=== PATIENT | female | born 1955 | race Hispanic/Latino ===

== ENCOUNTER 2018-07-18 07:36 | Day surgery (SDC) | payer OTHER ==
[2018-07-18] MEDS ORDERED: Propofol 10 mg/ml Inj (20 ML) ONE ×2 (08:42→08:57)
[2018-07-18] MEDS ORDERED: Sodium Chloride 0.9% 1,000 ML IV SCH (09:30)
[2018-07-18 10:00] VITALS: O2SAT 98
[2018-07-18 10:44] VITALS: BP 129/85; PULSE 85; RESP 16; TEMP 98.1
== END 2018-07-18 10:56 | disposition home or self-care (01) ==
LOC: ENDO 07:36
PROVIDERS: ATTEND Specialist
DX: Z12.11 Encounter for screening for malignant neoplasm of colon (principal); K22.70 Barrett's esophagus without dysplasia; Z86.010 Personal history of colon polyps; D12.0 Benign neoplasm of cecum; K62.1 Rectal polyp; K64.8 Other hemorrhoids; K22.2 Esophageal obstruction; K44.9 Diaphragmatic hernia without obstruction or gangrene; K31.89 Other diseases of stomach and duodenum; K21.0 Gastro-esophageal reflux disease with esophagitis; K29.80 Duodenitis without bleeding; Z85.118 Personal history of other malignant neoplasm of bronchus and lung; Z90.2 Acquired absence of lung [part of]; Z88.1 Allergy status to other antibiotic agents; Z91.048 Other nonmedicinal substance allergy status
CPT/HCPCS: 43239; 45380; 45385; 88305; 88312; 88342; J2001; J2704; J7030; J7040